=== PATIENT | male | born 1960 ===

== ENCOUNTER → 2019-04-23 | Day surgery (SDC) | payer BC ==
--- NOTE | 2019-04-05 09:22 | HP ---
HISTORY AND PHYSICAL: DATE OF ADMISSION/SURGERY: 04/23/19 - [facility] DATE OF OFFICE VISIT: 03/29/19 ATTENDING PHYSICIAN: Dr. Concepcion Morris * (DICTATED BY JOHN ROMAN) PROCEDURE: Left carpal tunnel release. CHIEF COMPLAINT: Left hand numbness and tingling. HISTORY OF PRESENT ILLNESS: John Paul is a 59-year-old male, who complains of numbness and tingling in his left hand for little over a year. He gets symptoms every day. It involves his index and middle fingers as well as the thumb and occasionally the ring finger, bothersome when he is driving or holding his cellphone. He has to shake out his hand to relieve the symptoms. He rates the symptoms as 6/10. He has failed conservative treatment and has elected to proceed with surgery. He is scheduled to undergo left carpal tunnel release by Dr. Morris on 04/23/19. PAST MEDICAL HISTORY: Negative. PAST SURGICAL HISTORY: Arm repair in 2 on the right, knee surgery in 1987 and 2001, left biceps tendon replacement in 2008. MEDICATIONS: 1. Multivitamin. 2. Simvastatin 40 mg. 3. Turmeric 500 mg. ALLERGIES: No known drug allergies. FAMILY HISTORY: Diabetes, heart disease. SOCIAL HISTORY: He lives alone. He works for [employer]. He denies tobacco use. He consumes 5 to 6 alcoholic beverages per week and denies recreational drug use. REVIEW OF SYSTEMS: A complete 14-point review of systems was obtained, other than HPI was negative and noncontributory including negative for any prior anesthesia problems. PHYSICAL EXAMINATION GENERAL: Well-developed, well-nourished 59-year-old male, in no acute distress. Alert and oriented x3. Appropriate mood and affect. HEENT: Head is normocephalic, atraumatic. NECK: Supple with no palpable lymph nodes. LUNGS: Clear to auscultation bilaterally. No wheezes, rales, or rhonchi. CARDIAC: Regular rate and rhythm. S1, S2. No murmurs, rubs, or gallops. MUSCULOSKELETAL: Left upper extremity: There is no soft tissue swelling or bruising. He has full range of motion of the wrist and hand. He has no atrophy , no weakness in the thumb. Thenar strength is 5/5. He has positive carpal compression test, positive Tinel's at the median nerve in the wrist. Negative Tinel's at the elbow. Sensation is decreased along the median nerve distribution. 2+ radial pulse. SKIN: Intact without rashes or lesions. IMPRESSION: Left carpal tunnel syndrome. PLAN: He is scheduled to undergo left carpal tunnel release on 04/23/[address] Morris. A prescription for tramadol will be sent to the patient's pharmacy for postoperative pain management. He will follow up in the office 10 to 14 days postoperatively. JOHN ROMAN [id number]/[facility] #: [id number] ARA
[~2019-04-23] MED LIST: Buffered Lidocaine 1% SYRIN* 1 ML/SYRINGE INTRADERM ONE; Lactated Ringers 1000 ML Bag* 1,000 ML IV SCH; Lidocaine 1% INJ* 10 MG/ML 30 ML SDV ONE; Midazolam* 1 MG/ML 5 ML VIAL (5 MG) ONE; Naloxone* 0.4 MG/ML 1 ML VIAL IV PRN; fentaNYL* 50 MCG/ML 2 ML VIAL (100 MCG VIAL) ONE
--- NOTE | 2019-04-23 10:58 | OP ---
DATE OF OPERATION: 04/23/19 LOCATED WITHIN [facility] DATE OF : 60 SURGEON: Concepcion Morris MD TAKER OFF DRYING KILN: JOHN uTrner ANESTHESIA: Local MAC. PRE-OP DIAGNOSIS: Left carpal tunnel syndrome. POST-OP DIAGNOSIS: Left carpal tunnel syndrome. OPERATIVE PROCEDURE: Left carpal tunnel release. ESTIMATED BLOOD LOSS: Zero. TOURNIQUET TIME: About 10 minutes. INDICATIONS: John Paul is a 59-year-old man, who has numbness and tingling in the median nerve distribution of his left hand. He presents for left carpal tunnel release. DESCRIPTION OF PROCEDURE: The patient was brought to the operating room, was given a sedation anesthetic and a local infiltration of 10 cc of 1% plain lidocaine in the palm of his left hand. The skin of his left hand and forearm was prepped and draped in the usual sterile fashion. The hand and forearm were exsanguinated and the tourniquet elevated to 250 mmHg. A longitudinal incision was made in the palm in line with the ring finger. We dissected through the subcutaneous tissue down to the transverse carpal ligament. The ligament was divided sharply with a knife and then more proximally with the scissors. The nerve was dissected free from the surrounding tissue and there was an area of severe compression at the mid portion of the ligament. The wound was irrigated and the skin edges reapproximated with 4- 0 nylon suture. The wound was dressed with Xeroform, 4x4, Webril and an Sly wrap. The patient tolerated the procedure well and was brought to the recovery room in good condition. [id number]/[facility] #: [id number] [facility]
[2019-04-23 11:22] VITALS: BP 117/63
== END | disposition home or self-care (01) ==
LOC: OREAST 08:10
PROVIDERS: ATTEND Orthopaedic Surgery
DX: G56.02 Carpal tunnel syndrome, left upper limb (principal); E78.00 Pure hypercholesterolemia, unspecified
CPT/HCPCS: J2250; J3010